=== PATIENT | male | born 1950 | race Caucasian/White ===

== ENCOUNTER 2017-08-06 11:58 | Observation (INO) | payer MEDICARE, OTHER ==
[2017-08-06] MEDS ORDERED: METOCLOPRAMIDE 5 MG/ML 2 ML VIAL IVP STA (13:38)
[2017-08-06] MEDS ORDERED: SODIUM CHLORIDE 0.9% 1,000 ML IV STA (13:38)
--- NOTE | 2017-08-06 13:41 | ED ---
General Adult HPI <Wan Reno - Last Filed: 08/06/17 15:27> - General Source: patient, family, RN notes reviewed Mode of arrival: ambulatory Limitations: no limitations, altered mental status <Brit Gonzalez - Last Filed: 08/06/17 15:31> - General Chief complaint: Upper Respiratory Infection Stated complaint: flu like symptoms, chest pain Time Seen by Provider: 08/06/17 13:31 - History of Present Illness Initial comments: 66-year-old male presents to the emergency department with a chief complaint of cough and some chest pain and nausea. He did have one episode of vomiting as well. They deny any fever or chills. He's been sick since Thursday. They state that he just does not seem to be getting better and she is continuing to have this discomfort so he thought they should be evaluated. He states the chest pain was across the chest. He states he's had hiccups on and off since Thursday as well. Patient denies any recent fever, chills, shortness of breath, back pain , abdominal pain, numbness or tingling, dysuria or hematuria, constipation or diarrhea, headaches or visual changes, or any other current symptoms. (Brit Gonzalez) - Related Data Home Medications Medication Instructions Recorded Confirmed Ascorbic Acid [Vitamin C] 500 mg PO DAILY 08/06/17 08/06/17 Citalopram Hydrobromide [CeleXA] 20 mg PO DAILY 08/06/17 08/06/17 Tamsulosin HCl [Flomax] 0.4 mg PO DAILY 08/06/17 08/06/17 Triamterene/Hydrochlorothiazid 1 tab PO DAILY 08/06/17 08/06/17 [Triamterene-Hctz 37.5-25 mg Tb] amLODIPine [Norvasc] 5 mg PO DAILY 08/06/17 08/06/17 Allergies Allergy/AdvReac Type Severity Reaction Status Date / Time No Known Allergies Allergy Verified 08/06/17 13:44 Review of Systems ROS Other: All systems not noted in ROS Statement are negative. <Wan Reno - Last Filed: 08/06/17 15:27> ROS Other: All systems not noted in ROS Statement are negative. <Brit Gonzalez - Last Filed: 08/06/17 15:31> ROS Statement: Those systems with pertinent positive or pertinent negative responses have been documented in the HPI. Past Medical History Past Medical History: Hypertension Additional Past Medical History / Comment(s): mentally handicapped obesity History of Any Multi-Drug Resistant Organisms: None Reported Past Surgical History: Adenoidectomy, Appendectomy, Cholecystectomy, Hernia Repair, Tonsillectomy Past Psychological History: Anxiety Smoking Status: Never smoker Past Alcohol Use History: None Reported Past Drug Use History: None Reported <Brit Gonzalez - Last Filed: 08/06/17 15:31> General Exam <Wan Reno - Last Filed: 08/06/17 15:27> Limitations: no limitations, altered mental status <Brit Gonzalez - Last Filed: 08/06/17 15:31> - General Exam Comments Initial Comments: General: The patient is awake and alert, in no distress, and does not appear acutely ill. Eye: Pupils are equal, round and reactive to light, extra-ocular movements are intact; there is normal conjunctiva bilaterally. No signs of icterus. Ears, nose, mouth and throat: There are moist mucous membranes and no oral lesions. Neck: The neck is supple, there is no tenderness . Cardiovascular: There is a regular rate and rhythm. No murmur, rub or gallop is appreciated. Respiratory: Lungs are clear to auscultation, respirations are non-labored, breath sounds are equal. No wheezes, stridor, rales, or rhonchi. Gastrointestinal: Soft, non-distended, non-tender abdomen without masses or organomegaly noted. There is no rebound or guarding present. No CVA tenderness. Bowel sounds are unremarkable. Back: There is no tenderness to palpation in the midline. There is no obvious deformity. No rashes noted. Musculoskeletal: Normal ROM, no tenderness, There is no pedal edema. There is no calf tenderness or swelling. Sensation intact. Pulses equal bilaterally 2+. Neurological: CN II-XII intact, There are no obvious motor or sensory deficits. Coordination appears grossly intact. Speech is normal. Skin: Skin is warm and dry and no rashes or lesions are noted. Psychiatric: Cooperative, appropriate mood & affect, normal judgment. (Brit Gonzalez) Course <Wan Reno - Last Filed: 08/06/17 15:27> <Brit Gonzalez - Last Filed: 08/06/17 15:31> Vital Signs 08/06/17 08/06/17 12:30 15:09 Temperature 98.1 F Pulse Rate 18 L 100 Respiratory 92 H 16 Rate Blood Pressure 121/58 110/56 O2 Sat by Pulse 96 98 Oximetry - Reevaluation(s) Reevaluation #1: 08/06/17 15:28 Patient reevaluated by myself, Dr. Reno. Patient has been complaining of some discomfort of the chest over the past couple of days. Patient has also had some vomiting and hiccups and cough. X-ray and chart review. Patient and family were updated. Case was discussed in detail with Dr. Finney, who will admit for Dr. Edmonds. (Wan Reno) Medical Decision Making - Lab Data Result diagrams: 08/06/17 13:57 08/06/17 13:57 <Wan Reno - Last Filed: 08/06/17 15:27> - Lab Data Result diagrams: 08/06/17 13:57 08/06/17 13:57 - Radiology Data Radiology results: report reviewed, image reviewed <Brit Gonzalez - Last Filed: 08/06/17 15:31> - Medical Decision Making 66-year-old male presents for hiccups And chest pain. At this time patient's lab work is been reviewed and troponin is stable. Due to the complaint of chest pain and the patient's mental handicap we will admit for cardiac rule out. The Lionel does agree to the admission. We will trend her troponins. Patient family on agreement this plan all questions have been answered. (Brit Gonzalez) - Lab Data Lab Results 08/06/17 08/06/17 08/06/17 Range/Units 13:57 13:57 13:57 WBC 16.2 H (3.8-10.6) k/uL RBC 4.48 (4.30-5.90) m/uL Hgb 14.3 (13.0-17.5) gm/dL Hct 43.2 (39.0-53.0) % MCV 96.4 (80.0-100.0) fL MCH 31.9 (25.0-35.0) pg MCHC 33.0 (31.0-37.0) g/dL RDW 13.6 (11.5-15.5) % Plt Count 270 (150-450) k/uL Neutrophils % 74 % Lymphocytes % 12 % Monocytes % 10 % Eosinophils % 1 % Basophils % 1 % Neutrophils # 12.0 H (1.3-7.7) k/uL Lymphocytes # 2.0 (1.0-4.8) k/uL Monocytes # 1.6 H (0-1.0) k/uL Eosinophils # 0.1 (0-0.7) k/uL Basophils # 0.1 (0-0.2) k/uL PT (9.0-12.0) sec INR (<1.2) APTT (22.0-30.0) sec Sodium 140 (137-145) mmol/L Potassium 3.9 (3.5-5.1) mmol/L Chloride 102 (98-107) mmol/L Carbon Dioxide 29 (22-30) mmol/L Anion Gap 9 mmol/L BUN 33 H (9-20) mg/dL Creatinine 1.18 (0.66-1.25) mg/dL Est GFR (CKD-EPI)AfAm 74 (>60 ml/min/1.73 sqM) Est GFR (CKD-EPI)NonAf 64 (>60 ml/min/1.73 sqM) Glucose 99 (74-99) mg/dL Calcium 8.7 (8.4-10.2) mg/dL Magnesium 2.1 (1.6-2.3) mg/dL Total Bilirubin 1.1 (0.2-1.3) mg/dL AST 32 (17-59) U/L ALT 54 (21-72) U/L Alkaline Phosphatase 79 (38-126) U/L Total Creatine Kinase 36 L (55-170) U/L CK-MB (CK-2) 1.0 (0.0-2.4) ng/mL CK-MB (CK-2) Rel Index 2.8 Troponin I <0.012 (0.000-0.034) ng/mL Total Protein 5.6 L (6.3-8.2) g/dL Albumin 3.2 L (3.5-5.0) g/dL Amylase <30 L (30-110) U/L Lipase 43 (23-300) U/L 08/06/17 Range/Units 13:57 WBC (3.8-10.6) k/uL RBC (4.30-5.90) m/uL Hgb (13.0-17.5) gm/dL Hct (39.0-53.0) % MCV (80.0-100.0) fL MCH (25.0-35.0) pg MCHC (31.0-37.0) g/dL RDW (11.5-15.5) % Plt Count (150-450) k/uL Neutrophils % % Lymphocytes % % Monocytes % % Eosinophils % % Basophils % % Neutrophils # (1.3-7.7) k/uL Lymphocytes # (1.0-4.8) k/uL Monocytes # (0-1.0) k/uL Eosinophils # (0-0.7) k/uL Basophils # (0-0.2) k/uL PT 9.7 (9.0-12.0) sec INR 1.0 (<1.2) APTT 21.7 L (22.0-30.0) sec Sodium (137-145) mmol/L Potassium (3.5-5.1) mmol/L Chloride (98-107) mmol/L Carbon Dioxide (22-30) mmol/L Anion Gap mmol/L BUN (9-20) mg/dL Creatinine (0.66-1.25) mg/dL Est GFR (CKD-EPI)AfAm (>60 ml/min/1.73 sqM) Est GFR (CKD-EPI)NonAf (>60 ml/min/1.73 sqM) Glucose (74-99) mg/dL Calcium (8.4-10.2) mg/dL Magnesium (1.6-2.3) mg/dL Total Bilirubin (0.2-1.3) mg/dL AST (17-59) U/L ALT (21-72) U/L Alkaline Phosphatase (38-126) U/L Total Creatine Kinase (55-170) U/L CK-MB (CK-2) (0.0-2.4) ng/mL CK-MB (CK-2) Rel Index Troponin I (0.000-0.034) ng/mL Total Protein (6.3-8.2) g/dL Albumin (3.5-5.0) g/dL Amylase (30-110) U/L Lipase (23-300) U/L Disposition <Wan Reno - Last Filed: 08/06/17 15:27> Decision Date: 08/06/17 Decision Time: 15:31 <Brit Gonzalez - Last Filed: 08/06/17 15:31> Clinical Impression: Chest pain, Hiccups, Cough Disposition: ADMITTED IP TO THIS [facility] Condition: Stable Referrals: Callie Edmonds MD [Primary Care Provider] - 1-2 days
[2017-08-06 14:15] LABS: Basophils # (A) 0.1 k/uL (0-0.2); Basophils % (A) 1 %; Eosinophils # (A) 0.1 k/uL (0-0.7); Eosinophils % (A) 1 %; HCT 43.2 % (39.0-53.0); HGB 14.3 gm/dL (13.0-17.5); Lymphocytes % (A) 12 %; MCH 31.9 pg (25.0-35.0); MCV 96.4 fL (80.0-100.0); Mean Platelet Volume 7.8; Monocytes # (A) 1.6 k/uL (0-1.0); Monocytes % (A) 10 %; Neutrophils % (A) 74 %; Platelet Count 270 k/uL (150-450); RBC 4.48 m/uL (4.30-5.90); RDW 13.6 % (11.5-15.5); WBC 16.2 k/uL (3.8-10.6)
[2017-08-06 14:24] LABS: Prothrombin Time 9.7 sec (9.0-12.0)
[2017-08-06 14:34] LABS: ALT 54 U/L (21-72); AST 32 U/L (17-59); Albumin 3.2 g/dL (3.5-5.0); Alkaline Phosphatase 79 U/L (38-126); Amylase <30 U/L (30-110); Anion Gap 9 mmol/L; Blood Urea Nitrogen 33 mg/dL (9-20); Calcium 8.7 mg/dL (8.4-10.2); Carbon Dioxide 29 mmol/L (22-30); Chloride 102 mmol/L (98-107); Glucose 99 mg/dL (74-99); Lipase 43 U/L (23-300); Magnesium 2.1 mg/dL (1.6-2.3); Partial Thromboplastin Time 21.7 sec (22.0-30.0); Potassium 3.9 mmol/L (3.5-5.1); Sodium 140 mmol/L (137-145); Total Bilirubin 1.1 mg/dL (0.2-1.3); Total Protein 5.6 g/dL (6.3-8.2)
[2017-08-06 14:46] LABS: Creatine Kinase 36 U/L (55-170)
--- NOTE | 2017-08-06 14:55 | XR ---
EXAMINATION TYPE: XR chest 2V DATE OF EXAM: 08/06/2017 COMPARISON: 04/18/2015 HISTORY: Chest pain TECHNIQUE: Frontal and lateral views of the chest are obtained. FINDINGS: There is no focal air space opacity, pleural effusion, or pneumothorax seen. The cardiac silhouette size is within normal limits. The osseous structures are intact. Incidental note is made of an azygos lobe and azygous fissure. Mild acromio clavicular arthropathy is noted. Minimal multile dany degenerative change of the thoracic spine is seen. IMPRESSION: No acute cardiopulmonary process.
[2017-08-06 15:00] LABS: Troponin I <0.012 ng/mL (0.000-0.034)
[2017-08-06] MEDS ORDERED: ASPIRIN 81 MG PO STA (15:31)
[2017-08-06] MEDS: SODIUM CHLORIDE 0.9% 1,000 ML IV SCH (16:52)
[2017-08-06] MEDS ORDERED: ACETAMINOPHEN TAB 325 MG TAB PO PRN (18:52)
[2017-08-06 20:07] LABS: Creatine Kinase 42 U/L (55-170)
[2017-08-06 20:17] LABS: Troponin I <0.012 ng/mL (0.000-0.034)
[2017-08-07 02:16] LABS: Cholesterol 117 mg/dL (<200); HDL Cholesterol 29 mg/dL (40-60); LDL Cholesterol,Calculated 67 mg/dL (0-99); Triglycerides 107 mg/dL (<150)
[2017-08-07 02:30] LABS: Creatine Kinase 46 U/L (55-170)
[2017-08-07 02:44] LABS: Creatine Kinase MB 1.1 ng/mL (0.0-2.4); Troponin I <0.012 ng/mL (0.000-0.034)
[2017-08-07 03:12] VITALS: RESP 18
[2017-08-07] MEDS: SODIUM CHLORIDE 0.9% 1,000 ML IV SCH (05:16)
[2017-08-07] MEDS ORDERED: METOCLOPRAMIDE 5 MG/ML 2 ML VIAL IVP STA (07:43)
[2017-08-07] MEDS ORDERED: TRIAMTERENE-HCTZ 37.5-25MG 1 EACH TAB PO SCH (09:00)
[2017-08-07] MEDS ORDERED: TAMSULOSIN 0.4 MG CAP.ER.24H PO SCH (09:00)
[2017-08-07] MEDS ORDERED: CITALOPRAM HYDROBROMIDE 20 MG TAB PO SCH (09:00)
[2017-08-07] MEDS ORDERED: ASPIRIN 81 MG PO SCH (09:00)
[2017-08-07] MEDS ORDERED: amLODIPine 5 MG TAB PO SCH (09:00)
[2017-08-07] MEDS ORDERED: ASPIRIN 325 MG TAB PO SCH (09:00)
[2017-08-07] MEDS ORDERED: METOPROLOL TARTRATE 25 MG TAB PO SCH (09:00)
[2017-08-07] MEDS ORDERED: ASCORBIC ACID 500 MG TAB PO SCH (09:00)
--- NOTE | 2017-08-07 11:18 | ECHOF ---
Referral Reason:chest pain MEASUREMENTS -------- HEIGHT: 180.3 cm WEIGHT: 143.3 kg BP: 131/70 IVSd: 0.8 cm (0.6 - 1.1) LVIDd: 4.8 cm (3.9 - 5.3) LVPWd: 0.9 cm (0.6 - 1.1) IVSs: 1.9 cm LVIDs: 1.6 cm LVPWs: 1.3 cm LAESV Index (A-L): 30.02 ml/m Ao Diam: 3.8 cm (2.0 - 3.7) AV Cusp: 2.2 cm (1.5 - 2.6) LA Diam: 4.2 cm (2.7 - 3.8) MV EXCURSION: 16.963 mm (> 18.000) MV EF SLOPE: 73 mm/s (70 - 150) EPSS: 0.7 cm MV E Sadiq: 1.32 m/s MV DecT: 203 ms MV A Sadiq: 0.76 m/s MV E/A Ratio: 1.74 RAP: 5.00 mmHg RVSP: 10.57 mmHg FINDINGS -------- Sinus rhythm. This was a technically difficult study with suboptimal views. The left ventricular size is normal. Left ventricular wall thickness is normal. Overall left vent ricular systolic function is normal with, an EF between 55 - 60 %. The right ventricle is normal in size and function. The left atrium is mildly dilated. The right atrium is normal in size. Lumason used The aortic valve is trileaflet, and appears structurally normal. No aortic stenosis or regurgitation. Mild mitral regurgitation is present. Trace tricuspid regurgitation present. The right ventricular systolic pressure, as measured by Dopp ler, is 10.57mmHg. Pulmonic valve appears structurally normal. The aortic root size is normal. The pericardium is normal. CONCLUSIONS -------- 1. Sinus rhythm. 2. This was a technically difficult study with suboptimal views. 3. The left ventricular size is normal. 4. Left ventricular wall thickness is normal. 5. Overall left ventricular systolic function is normal with, an EF between 55 - 60 %. 6. The right ventricle is normal in size and function. 7. The left atrium is mildly dilated. 8. The right atrium is normal in size. 9. Lumason used 10. The aortic valve is trileaflet, and appears structurally normal. No aortic stenosis or regurgitat ion. 11. Mild mitral regurgitation is present. 12. Trace tricuspid regurgitation present. 13. The right ventricular systolic pressure, as measured by Doppler, is 10.57mmHg. 14. Pulmonic valve appears structurally normal. 15. The aortic root size is normal. 16. The pericardium is normal. FLUE TILE PRESS OPERATOR: Ayala Sexton RDCS
[2017-08-07 11:55] VITALS: BP 139/58; PULSE 76; TEMP 97.7
--- NOTE | 2017-08-07 14:56 | P.HPIM ---
History of Present Illness 66-year-old male presents to the emergency department with a chief complaint of cough and some chest pain and nausea. He did have one episode of vomiting as well. They deny any fever or chills. He's been sick since Thursday. They state that he just does not seem to be getting better and she is continuing to have this discomfort so he thought they should be evaluated. He states the chest pain was across the chest. He states he's had hiccups on and off since Thursday as well. Patient chest pain is predominantly in the retrosternal area associated nausea and vomiting appears to be gastroenteritis. Patient was a valid by cardiology cleared for discharge. Patient also had flu recently. Patient is complaining of bronchitis symptoms with cough with greenish sputum production because of which patient was discharged with 5 days of dark segment patient does have leukocytosis secondary to bronchitis Review of Systems REVIEW OF SYSTEMS: CONSTITUTIONAL: No fever, no malaise, no fatigue. HEENT: No recent visual problems or hearing problems. Denied any sore throat. CARDIOVASCULAR: No orthopnea, PND, no palpitations, no syncope. PULMONARY: No shortness of breath, GASTROINTESTINAL: No diarrhea. NEUROLOGICAL: No headaches, no weakness, no numbness. HEMATOLOGICAL: Denies any bleeding or petechiae. GENITOURINARY: Denies any burning micturition, frequency, or urgency. MUSCULOSKELETAL/RHEUMATOLOGICAL: Denies any joint pain, swelling, or any muscle pain. ENDOCRINE: Denies any polyuria or polydipsia. The rest of the 14-point review of systems is negative. Past Medical History Past Medical History: Hypertension, Pneumonia Additional Past Medical History / Comment(s): kidney stones,gallstones. at had lack of oxygen,mentally handicapped.took classes at [employer] age 26 then went to [employer]. unable to read but able to spell name and unable to manage money. his mom and he lives with dad. his sister sherie and chelsy are his legal guardians. obesity History of Any Multi-Drug Resistant Organisms: None Reported Past Surgical History: Adenoidectomy, Appendectomy, Cholecystectomy, Hernia Repair, Tonsillectomy Additional Past Surgical History / Comment(s): kidney stone removed Past Anesthesia/Blood Transfusion Reactions: No Reported Reaction Smoking Status: Never smoker - Past Family History Father History Unknown: Yes Mother History Unknown: Yes Medications and Allergies Home Medications Medication Instructions Recorded Confirmed Type Ascorbic Acid [Vitamin C] 500 mg PO DAILY 08/06/17 08/06/17 History Citalopram Hydrobromide [CeleXA] 20 mg PO DAILY 08/06/17 08/06/17 History Tamsulosin HCl [Flomax] 0.4 mg PO DAILY 08/06/17 08/06/17 History Triamterene/Hydrochlorothiazid 1 tab PO DAILY 08/06/17 08/06/17 History [Triamterene-Hctz 37.5-25 mg Tb] amLODIPine [Norvasc] 5 mg PO DAILY 08/06/17 08/06/17 History Doxycycline Monohydrate [Monodox] 100 mg PO BID 5 Days #10 cap 08/07/17 Rx Omeprazole [PriLOSEC] 40 mg PO AC-ELGIN #14 capsule. 08/07/17 Rx Allergies Allergy/AdvReac Type Severity Reaction Status Date / Time No Known Allergies Allergy Verified 08/06/17 13:44 Physical Exam Vitals: Vital Signs Temp Pulse Pulse Resp BP BP BP 08/07/17 11:53 97.7 F 76 18 139/58 08/07/17 08:00 98.5 F 94 18 170/77 08/07/17 03:12 18 08/07/17 03:10 98.9 F 90 18 131/70 08/07/17 00:00 17 08/06/17 23:27 98.7 F 93 17 138/71 08/06/17 20:00 18 08/06/17 19:40 98.0 F 94 18 128/60 08/06/17 17:15 98.6 F 87 18 148/69 08/06/17 16:56 97.7 F 60 16 148/86 08/06/17 15:09 100 16 110/56 Pulse Ox 08/07/17 11:53 94 L 08/07/17 08:00 96 08/07/17 03:12 08/07/17 03:10 94 L 08/07/17 00:00 08/06/17 23:27 96 08/06/17 20:00 08/06/17 19:40 95 08/06/17 17:15 99 08/06/17 16:56 98 08/06/17 15:09 98 Intake and Output 08/06/17 08/07/17 08/07/17 22:59 06:59 14:59 Intake Total 1332 700 477 Balance 1332 700 477 Intake: IV 700 Sodium Chloride 0.9% 1, 700 000 ml @ 100 mls/hr IV . Q10H ROSETTA Rx#:[id number] Oral 133 477 Other: Voiding Method Toilet Toilet Toilet # Voids 5 Weight 143.335 kg PHYSICAL EXAMINATION: GENERAL: The patient is alert and oriented x3, not in any acute distress. Well developed, well nourished. Obese HEENT: Pupils are round and equally reacting to light. EOMI. No scleral icterus. No conjunctival pallor. Normocephalic, atraumatic. No pharyngeal erythema. No thyromegaly. CARDIOVASCULAR: S1 and S2 present. No murmurs, rubs, or gallops. PULMONARY: Chest is clear to auscultation, no wheezing or crackles. ABDOMEN: Soft, nontender, nondistended, normoactive bowel sounds. No palpable organomegaly. MUSCULOSKELETAL: No joint swelling or deformity. EXTREMITIES: No cyanosis, clubbing, or pedal edema. NEUROLOGICAL: Gross neurological examination did not reveal any focal deficits. SKIN: No rashes. Results CBC & Chem 7: 08/06/17 13:57 08/06/17 13:57 Labs: Abnormal Lab Results - Last 24 Hours (Table) 08/06/17 08/06/17 08/07/17 Range/Units 13:57 19:31 01:16 Total Creatine Kinase 36 L 42 L 46 L (55-170) U/L HDL Cholesterol (40-60) mg/dL 08/07/17 Range/Units 01:16 Total Creatine Kinase (55-170) U/L HDL Cholesterol 29 L (40-60) mg/dL Thrombosis Risk Factor Assmnt - Choose All That Apply Each Factor Represents 1 point: Obesity (BMI >25), Swollen legs (current) Other Risk Factors: Yes Each Risk Factor Represents 2 Points: Age 61-74 years Other congenital or acquired thrombophilia - If yes, enter type in comment: No Thrombosis Risk Factor Assessment Total Risk Factor Score: 4 Thrombosis Risk Factor Assessment Level: Moderate Risk Assessment and Plan Plan: --Chest pain: Most probably related to gastritis or gastroenteritis patient will be given prescription for 14 days of Prilosec. Check ruled out acute coronary syndromes. - bronchitis: Patient was discharged on doxycycline, patient had recent influenzal infection. -Hypertension. -Leukocytosis secondary to bronchitis.
--- NOTE | 2017-08-07 14:56 | P.DS ---
Providers Date of admission: 08/06/17 15:29 Attending physician: Cheri Finney Consults: 08/06/17 16:38 Consult Physician Stat Consulting Provider: Dereck Beltre Consult Reason/Comments: chest pain Do you want consulting provider notified?: Yes Primary care physician: Callie Edmonds [facility] Course: Please refer to my HPI Patient Condition at Discharge: Stable Plan - Discharge Summary Discharge Rx Participant: No New Discharge Prescriptions: New Doxycycline Monohydrate [Monodox] 100 mg PO BID 5 Days #10 cap Omeprazole [PriLOSEC] 40 mg PO AC-BRKFST #14 capsule. No Action Triamterene/Hydrochlorothiazid [Triamterene-Hctz 37.5-25 mg Tb] 1 tab PO DAILY Citalopram Hydrobromide [CeleXA] 20 mg PO DAILY amLODIPine [Norvasc] 5 mg PO DAILY Tamsulosin HCl [Flomax] 0.4 mg PO DAILY Ascorbic Acid [Vitamin C] 500 mg PO DAILY Discharge Medication List Ascorbic Acid [Vitamin C] 500 mg PO DAILY 08/06/17 [History] Citalopram Hydrobromide [CeleXA] 20 mg PO DAILY 08/06/17 [History] Tamsulosin HCl [Flomax] 0.4 mg PO DAILY 08/06/17 [History] Triamterene/Hydrochlorothiazid [Triamterene-Hctz 37.5-25 mg Tb] 1 tab PO DAILY 08/06/17 [History] amLODIPine [Norvasc] 5 mg PO DAILY 08/06/17 [History] Doxycycline Monohydrate [Monodox] 100 mg PO BID 5 Days #10 cap 08/07/17 [Rx] Omeprazole [PriLOSEC] 40 mg PO AC-BRKFST #14 capsule. 08/07/17 [Rx] Follow up Appointment(s)/Referral(s): Gurwinder Thornton MD [STAFF PHYSICIAN] - 2 Weeks Callie Edmonds MD [Primary Care Provider] - 1-2 days Discharge Disposition: HOME SELF-CARE
--- NOTE | 2017-08-07 15:11 | CONS ---
CONSULTATION Nate Landers is a 66-year-old gentleman with a history of obesity and hypertension, admitted to the hospital with episode of cough and hiccups. With this hiccups, he is experiencing some chest pain and I was asked to see him in this regard. He is resting comfortably without symptoms at the time of my evaluation. He came in mostly with some nausea and also felt sick to his stomach, had 1 episode of emesis. He has no further emesis. His appetite is good. He wishes to eat. He felt uncomfortable in the chest because of recurrent episodes of hiccups that he has had. While I was with him, I had him drink some water and then the hiccups disappeared. He feels better. He denies chest pain. He has hypertension under good control and has had previous stress tests, details are not available, but these were normal per patient. PAST MEDICAL HISTORY: 1. Hypertension. 2. Obesity. 3. History of appendectomy and cholecystectomy and hiatal hernia repair in the past. ALLERGIES: None. MEDICATIONS: He takes Dyazide 1 tablet daily and amlodipine 5 mg daily. Patient is not a smoker. Does not consume alcohol. PHYSICAL EXAMINATION: Blood pressure is 130/70, pulse rate is 90 per minute, regular. HEENT: Unremarkable. Fundus was not examined by me. Neck is supple. There is no JVD. I do not hear a carotid bruit. Heart exam reveals S1, S2, but distant heart sounds. No significant murmurs. Lungs reveal diminished air entry. Abdomen is soft, nontender. Lower extremities reveal diminished pulses. Central nervous system is grossly within normal limits without focal deficits. IMPRESSION: 1. Atypical chest pain with hiccups. 2. Hypertension. 3. Obesity. RECOMMENDATION: I am recommending that we should decrease the aspirin to 81 mg daily. Echocardiogram revealed normal systolic function. No other significant abnormalities were detected. Patient can be discharged with the understanding that a cardiac workup can be performed as an outpatient. Discussed my thoughts in detail with the patient. Thank you very much for the consult. MMODL / IJN: [id number] /
== END 2017-08-07 13:50 | disposition home or self-care (01) ==
LOC: EC 11:58 → 3OBS 15:29
PROVIDERS: ADMIT Internal Medicine; ATTEND Internal Medicine
DX: R07.89 Other chest pain (principal); J40 Bronchitis, not specified as acute or chronic; I10 Essential (primary) hypertension; E66.9 Obesity, unspecified; Z68.41 Body mass index [BMI] 40.0-44.9, adult; R06.6 Hiccough; R11.2 Nausea with vomiting, unspecified; F41.9 Anxiety disorder, unspecified; M79.89 Other specified soft tissue disorders; Z90.49 Acquired absence of other specified parts of digestive tract; Z79.899 Other long term (current) drug therapy; Z87.01 Personal history of pneumonia (recurrent); Z87.442 Personal history of urinary calculi; Z55.9 Problems related to education and literacy, unspecified
CPT/HCPCS: 96374 ×2; 96361 ×2; 99284 ×2; 96376; 36415; 93005; 93306; 80061; 80053; 82150; 82550 ×2; 82553 ×2; 83690; 83735; 84484 ×2; 85025; 85610; 85730; 71046; G0378 ×2; J2765 ×2; Q9950

== ENCOUNTER 2019-07-24 16:05 | Inpatient (IN) | payer MEDICARE, OTHER ==
--- NOTE | 2019-07-24 17:04 | ED ---
General Adult HPI - General Chief complaint: Recheck/Abnormal Lab/Rx Stated complaint: High Blood Pressure/Side Pain Time Seen by Provider: 07/24/19 16:15 Source: patient, family, RN notes reviewed, old records reviewed Mode of arrival: ambulatory Limitations: altered mental status - History of Present Illness Initial comments: 68-year-old male presenting for evaluation of increased urination, flank pain. Symptoms have been present for the past several days. He's had increased urination, increased urinary frequency and urgency. Patient is mentally disabled and unable to give a complete history however his sisters are at bedside and are able to contribute to the history. He was seen by his customer support analyst approximately 2 weeks ago, had a short course of increased Lasix secondary to bilateral lower extremity edema. This was adjusted back to his baseline Lasix dose for proximally one week ago. Over the past several days he's had increased urination, thirst and left flank pain. No fever or chills. No vomiting. No chest pain or dyspnea. No reported abdominal pain. No diarrhea. - Related Data Home Medications Medication Instructions Recorded Confirmed Citalopram Hydrobromide [CeleXA] 20 mg PO DAILY 08/06/17 07/24/19 Tamsulosin HCl [Flomax] 0.4 mg PO DAILY 08/06/17 07/24/19 Enalapril [Vasotec] 20 mg PO DAILY 07/24/19 07/24/19 Furosemide [Lasix] 40 mg PO DAILY 07/24/19 07/24/19 Hydrochlorothiazide [Hydrodiuril] 25 mg PO DAILY 07/24/19 07/24/19 Levothyroxine Sodium [Euthyrox] 75 mcg PO DAILY 07/24/19 07/24/19 Levothyroxine Sodium [Synthroid] 100 mcg PO DAILY 07/24/19 07/24/19 Losartan Potassium 100 mg PO DAILY 07/24/19 07/24/19 Metoprolol Succinate [Toprol XL] 25 mg PO DAILY 07/24/19 07/24/19 Omeprazole 20 mg PO BID PRN 07/24/19 07/24/19 Potassium Chloride ER [K-Dur 20] 20 meq PO DAILY 07/24/19 07/24/19 Allergies Allergy/AdvReac Type Severity Reaction Status Date / Time No Known Allergies Allergy Verified 07/24/19 17:16 Review of Systems ROS Statement: Those systems with pertinent positive or pertinent negative responses have been documented in the HPI. ROS Other: All systems not noted in ROS Statement are negative. Past Medical History Past Medical History: Hypertension, Pneumonia Additional Past Medical History / Comment(s): kidney stones,gallstones. at had lack of oxygen,mentally handicapped.took classes at [employer] age 26 then went to [employer] [place]. unable to read but able to spell name and unable to manage money. his mom and he lives with d ad. his sister sherie and chelsy are his legal guardians. obesity History of Any Multi-Drug Resistant Organisms: None Reported Past Surgical History: Adenoidectomy, Appendectomy, Cholecystectomy, Hernia Repair, Tonsillectomy Additional Past Surgical History / Comment(s): kidney stone removed Past Anesthesia/Blood Transfusion Reactions: No Reported Reaction Past Psychological History: No Psychological Hx Reported Smoking Status: Never smoker Past Alcohol Use History: None Reported Past Drug Use History: None Reported - Past Family History Father History Unknown: Yes Mother History Unknown: Yes General Exam Limitations: altered mental status General appearance: alert, in no apparent distress Head exam: Present: atraumatic, normocephalic Eye exam: Present: normal appearance, PERRL ENT exam: Present: mucous membranes dry Neck exam: Present: normal inspection. Absent: tenderness, meningismus Respiratory exam: Present: normal lung sounds bilaterally. Absent: respiratory distress, wheezes, rales Cardiovascular Exam: Present: regular rate, normal rhythm GI/Abdominal exam: Present: soft, distended. Absent: tenderness, guarding, rebound Extremities exam: Present: pedal edema, other (Chronic venous stasis, bilateral erythema) Back exam: Present: normal inspection. Absent: full ROM, tenderness, paraspinal tenderness, vertebral tenderness Neurological exam: Present: alert. Absent: motor sensory deficit Skin exam: Present: warm, dry Course Vital Signs 07/24/19 07/24/19 16:10 18:16 Temperature 97.8 F 98.2 F Pulse Rate 85 84 Respiratory 20 18 Rate Blood Pressure 196/80 194/77 O2 Sat by Pulse 95 96 Oximetry EKG Findings - EKG Comments: EKG Findings:: EKG: Normal sinus rhythm, sinus arrhythmia, left atrial enlargement slightly widened QRS at 120 ms, UT interval 168, ventricular rate of 80, QTC 445, no ST segment elevation. Medical Decision Making - Medical Decision Making 68-year-old male with decreased urine output, thirst. Patient is a poor historian, also complaining of some flank pain. He is unable to urinate while the emergency department. Laboratory testing does reveal significant leukocytosis at 24.6, stable hemoglobin, mild increase in symptoms and then at 2.02. He has a mild lactic acid of 2.3. X-ray concerning for ileus, given this with the flank pain, CT is performed. Distended bladder, bilateral hydronephrosis, there is an incarcerated umbilical hernia. Patient has been having normal bowel movements, no vomiting, and low suspicion for obstructive process at this time. I suspect his symptoms are all related to urinary retention and bilateral hydronephrosis. He is initiated on IV antibiotics, Baker catheter is placed. He will have continuous IV fluids. He's admitted for acute renal failure, pyelonephritis, urinary retention. He is discussed with Dr. Hill who will admit. - Lab Data Result diagrams: 07/24/19 16:55 07/24/19 16:55 Lab Results 07/24/19 07/24/19 07/24/19 Range/Units 16:55 16:55 16:55 WBC 24.6 H (3.8-10.6) k/uL RBC 4.74 (4.30-5.90) m/uL Hgb 15.2 (13.0-17.5) gm/dL Hct 46.3 (39.0-53.0) % MCV 97.7 (80.0-100.0) fL MCH 32.1 (25.0-35.0) pg MCHC 32.8 (31.0-37.0) g/dL RDW 13.4 (11.5-15.5) % Plt Count 265 (150-450) k/uL Neutrophils % 88 % Lymphocytes % 4 % Monocytes % 6 % Eosinophils % 0 % Basophils % 0 % Neutrophils # 21.7 H (1.3-7.7) k/uL Lymphocytes # 1.1 (1.0-4.8) k/uL Monocytes # 1.5 H (0-1.0) k/uL Eosinophils # 0.1 (0-0.7) k/uL Basophils # 0.0 (0-0.2) k/uL PT 9.7 (9.0-12.0) sec INR 0.9 (<1.2) APTT 22.3 (22.0-30.0) sec Sodium 144 (137-145) mmol/L Potassium 4.0 (3.5-5.1) mmol/L Chloride 107 (98-107) mmol/L Carbon Dioxide 28 (22-30) mmol/L Anion Gap 9 mmol/L BUN 29 H (9-20) mg/dL Creatinine 2.02 H (0.66-1.25) mg/dL Est GFR (CKD-EPI)AfAm 38 (>60 ml/min/1.73 sqM) Est GFR (CKD-EPI)NonAf 33 (>60 ml/min/1.73 sqM) Glucose 178 H (74-99) mg/dL Plasma Lactic Acid Edgar (0.7-2.0) mmol/L Calcium 10.0 (8.4-10.2) mg/dL Magnesium 1.8 (1.6-2.3) mg/dL Total Bilirubin 1.9 H (0.2-1.3) mg/dL AST 39 (17-59) U/L ALT 42 (4-49) U/L Alkaline Phosphatase 123 (38-126) U/L NT-Pro-B Natriuret Pep pg/mL Total Protein 7.6 (6.3-8.2) g/dL Albumin 4.6 (3.5-5.0) g/dL Acetone, Qual Negative (Negative) 07/24/19 07/24/19 Range/Units 16:55 16:55 WBC (3.8-10.6) k/uL RBC (4.30-5.90) m/uL Hgb (13.0-17.5) gm/dL Hct (39.0-53.0) % MCV (80.0-100.0) fL MCH (25.0-35.0) pg MCHC (31.0-37.0) g/dL RDW (11.5-15.5) % Plt Count (150-450) k/uL Neutrophils % % Lymphocytes % % Monocytes % % Eosinophils % % Basophils % % Neutrophils # (1.3-7.7) k/uL Lymphocytes # (1.0-4.8) k/uL Monocytes # (0-1.0) k/uL Eosinophils # (0-0.7) k/uL Basophils # (0-0.2) k/uL PT (9.0-12.0) sec INR (<1.2) APTT (22.0-30.0) sec Sodium (137-145) mmol/L Potassium (3.5-5.1) mmol/L Chloride (98-107) mmol/L Carbon Dioxide (22-30) mmol/L Anion Gap mmol/L BUN (9-20) mg/dL Creatinine (0.66-1.25) mg/dL Est GFR (CKD-EPI)AfAm (>60 ml/min/1.73 sqM) Est GFR (CKD-EPI)NonAf (>60 ml/min/1.73 sqM) Glucose (74-99) mg/dL Plasma Lactic Acid Edgar 2.3 H* (0.7-2.0) mmol/L Calcium (8.4-10.2) mg/dL Magnesium (1.6-2.3) mg/dL Total Bilirubin (0.2-1.3) mg/dL AST (17-59) U/L ALT (4-49) U/L Alkaline Phosphatase (38-126) U/L NT-Pro-B Natriuret Pep 547 pg/mL Total Protein (6.3-8.2) g/dL Albumin (3.5-5.0) g/dL Acetone, Qual (Negative) Disposition Clinical Impression: SOPHIA (acute kidney injury), Pyelonephritis Disposition: ADMITTED IP TO THIS [facility] Condition: Stable Is patient prescribed a controlled substance at d/c from ED?: No Referrals: Callie Edmonds MD [Primary Care Provider] - 1-2 days Decision to Admit Reason: Admit from EC Decision Date: 07/24/19 Decision Time: 19:35
[2019-07-24 17:08] LABS: Basophils % (A) 0 %; Eosinophils # (A) 0.1 k/uL (0-0.7); Eosinophils % (A) 0 %; HCT 46.3 % (39.0-53.0); HGB 15.2 gm/dL (13.0-17.5); Lymphocytes # (A) 1.1 k/uL (1.0-4.8); Lymphocytes % (A) 4 %; MCH 32.1 pg (25.0-35.0); MCHC 32.8 g/dL (31.0-37.0); MCV 97.7 fL (80.0-100.0); Mean Platelet Volume 8.4; Monocytes # (A) 1.5 k/uL (0-1.0); Monocytes % (A) 6 %; Neutrophils # (A) 21.7 k/uL (1.3-7.7); Neutrophils % (A) 88 %; Platelet Count 265 k/uL (150-450); RBC 4.74 m/uL (4.30-5.90); RDW 13.4 % (11.5-15.5); WBC 24.6 k/uL (3.8-10.6)
[2019-07-24 17:14] LABS: ALT 42 U/L (4-49); AST 39 U/L (17-59); African American GFR (CKD) 38 (>60 ml/min/1.73 sqM); Albumin 4.6 g/dL (3.5-5.0); Alkaline Phosphatase 123 U/L (38-126); Anion Gap 9 mmol/L; Blood Urea Nitrogen 29 mg/dL (9-20); Carbon Dioxide 28 mmol/L (22-30); Chloride 107 mmol/L (98-107); Glucose 178 mg/dL (74-99); Magnesium 1.8 mg/dL (1.6-2.3); Non-African American GFR(CKD) 33 (>60 ml/min/1.73 sqM); Sodium 144 mmol/L (137-145); Total Bilirubin 1.9 mg/dL (0.2-1.3); Total Protein 7.6 g/dL (6.3-8.2)
[2019-07-24 17:19] LABS: INR 0.9 (<1.2); Prothrombin Time 9.7 sec (9.0-12.0)
[2019-07-24 17:20] LABS: Partial Thromboplastin Time 22.3 sec (22.0-30.0)
[2019-07-24] MEDS ORDERED: SODIUM CHLORIDE 0.9% 500 ML 500 ML IV ONE ×2 (17:50→18:25)
[2019-07-24] MEDS ORDERED: cefTRIAXone IN SWFI 1,000 MG/10 ML SYRINGE IVP STA (18:25)
--- NOTE | 2019-07-24 18:29 | XR ---
EXAMINATION TYPE: XR chest 2V DATE OF EXAM: 07/24/2019 COMPARISON: 08/06/2017 HISTORY: Chest pain TECHNIQUE: 2 views. FINDINGS: Heart is normal. Lungs are clear of consolidation. There are no hilar masses. Thoracic aorta is shows mild atheromatous change. There is mild coarsening of the lung markings. IMPRESSION: Inspiration is decreased compared to last exam. There is minimal subsegmental atelectasis at the lung bases. No heart failure. Normal heart.
--- NOTE | 2019-07-24 18:30 | XR ---
EXAMINATION TYPE: XR KUB DATE OF EXAM: 07/24/2019 COMPARISON: NONE HISTORY: Flank pain TECHNIQUE: 2 views FINDINGS: 2 views upright show some dilated gas-filled loops of small bowel in the right abdomen. The re is no evidence of free air. There are no pathologic calcifications over the kidneys. There are cli ps from cholecystectomy. IMPRESSION: Distended gas-filled small bowel in the right upper quadrant could relate to ileus or par tial mechanical obstruction. No free air.
--- NOTE | 2019-07-24 19:07 | CT ---
EXAMINATION TYPE: CT abdomen pelvis wo con DATE OF EXAM: 07/24/2019 COMPARISON: None HISTORY: Abdominal pain Flank pain CT DLP: 1990.4 mGycm Automated exposure control for dose reduction was used. Multiple axial sections were obtained from the diaphragm to the floor the pelvis without contrast. There is mild subsegmental atelectasis at the lung bases. Heart appears enlarged. Liver shows no focal defect. Exam is limited by patient's size. Spleen is intact. There is no evidenc e of pancreatic mass. There are clips from cholecystectomy. Stomach appears intact. The bile ducts ar e not dilated. There is no adrenal mass. Kidneys have normal size and contour. There is mild fat stranding around th e left kidney. There is fat stranding extending along the left psoas muscle. I see no definite ureter al calculus. There is mild fullness of the left and right renal pelvis. There is no retroperitoneal a denopathy. Bladder distends smoothly. Prostate is enlarged and measures 8.5 cm. There is no inguinal hernia. There is mild fat stranding extending into the right scrotum. I see no evidence of a bowel obstruction. Small bowel is not dilated. There is incarcerated umbilical hernia containing small bowel. There is gas filled distended small bowel in the right mid abdomen th at measures up to 2.5 cm. There is no evidence of free air. There is no ascites. There is no mesenteric edema. The appendix is medial and posterior and appears normal. Lumbar vertebra have normal alignment. There is no compression fracture. The bony pelvis appears inta ct. IMPRESSION: There is mild bilateral hydronephrosis. There is fat stranding and edema along the left psoas muscle and around the proximal left ureter. No definite ureteral stone seen. This appearance could relate to obstructing nonopaque stone or recently passed stone. Enlarged prostate with mildly enlarged urinary bladder measuring 15 cm in length that is suggestive o f some chronic bladder outlet obstruction. Severe acute pyelonephritis also possible. Incarcerated umbilical hernia containing small bowel. There appears to be some distended gas-filled b owel proximal to the hernia and a mild partial mechanical small bowel obstruction is suspected. Herni a measures 3.5 x 2.5 cm.
[2019-07-24] MEDS ORDERED: hydrALAZINE HCL 20 MG/ML 1 ML VIAL IVP STA (19:29)
[2019-07-24] MEDS ORDERED: ONDANSETRON 4 MG/2 ML VIAL IVP PRN (19:30)
[2019-07-24] MEDS ORDERED: NALOXONE 0.4 MG/ML 1 ML VIAL IV PRN (19:30)
[2019-07-24] MEDS ORDERED: ACETAMINOPHEN TAB 325 MG TAB PO PRN (19:30)
[2019-07-24] MEDS: SODIUM CHLORIDE 0.9% 1,000 ML IV SCH (20:13)
[2019-07-24 20:18] LABS: Appearance,Urine Clear (Clear); Bilirubin,Urine Negative (Negative); Blood,Urine Trace (Negative); Color,Urine Yellow; Glucose,Urine (UA) Negative (Negative); Ketones,Urine Negative (Negative); Leukocyte Esterase,Urine Small (Negative); Mucus,Urine Rare /hpf; Nitrite,Urine Negative (Negative); Protein,Urine Trace (Negative); RBC,Urine 6 /hpf (0-5); Specific Gravity,Urine 1.013 (1.001-1.035); Urobilinogen,Urine <2.0 mg/dL (<2.0); WBC,Urine 8 /hpf (0-5)
[2019-07-24] MEDS ORDERED: NON FORMULARY DRUG (Omeprazole [Omeprazole] 20 MG) PO PRN (21:19)
[2019-07-24] MEDS ORDERED: HYDROmorphone 0.5 MG/0.5 ML SYRINGE IVP PRN (21:21)
[2019-07-24] MEDS ORDERED: ALPRAZolam 0.25 MG TAB PO PRN (21:21)
[2019-07-24] MEDS ORDERED: HYDROcodone/APAP 5-325MG 1 EACH TAB PO PRN (21:21)
[2019-07-24] MEDS ORDERED: IPRATROPIUM-ALBUTEROL 3 ML NEB INHALATION PRN (21:23)
[2019-07-24] MEDS: TAMSULOSIN 0.4 MG CAP.ER.24H PO SCH (22:45)
--- NOTE | 2019-07-24 23:05 | HP ---
HISTORY AND PHYSICAL DATE OF SERVICE: 07/24/2019 CHIEF COMPLAINTS: Abdominal discomfort and as well as abnormal labs. HISTORY OF PRESENT ILLNESS: This 68-year-old gentleman with a past medical history of multiple medical problems including hypertension, history of pneumonia, kidney stones, appendectomy, history of cholecystectomy, also had mental disability from childhood. The patient apparently living with the patient's father. The patient apparently gained weight recently and was evaluated by Dr. Thornton in the outpatient setting and was given Lasix, which is being adjusted in the outpatient setting. Currently the patient is complaining of some difficulty in urination with left flank pain. The patient has seen urology also previously. The patient also apparently had increased urinary frequency and urgency. Because of multiple complaints, the patient came to [facility] and was admitted for further evaluation and evaluation and treatment. Lasix dose is being adjusted as mentioned earlier. In the ER, evaluation showed evidence of increased WBC and creatinine was found to be 2.02. Plasma lactic acid 2.3. Evidence of UTI was suspected and as well as early sepsis. The patient also had abdominal pelvis CAT scan which showed multiple findings of mild bilateral hydronephrosis as well stranding edema with the left psoas muscle and as well as enlarged prostate with mildly enlarged urinary bladder incarcerated umbilical hernia containing small bowel also. The patient is being closely monitored. There is no history of fever, rigors. No history of headache, loss of consciousness, seizures. The patient followed by Dr. Edmonds in the outpatient setting. PAST MEDICAL HISTORY: Past medical history of hypertension, history of pneumonia, kidney stones, appendectomy, history of cholecystectomy. MEDICATIONS: 1. Omeprazole 20 mg b.i.d. p.r.n. 2. Toprol-XL 25 mg p.o. daily. 4. Losartan 100 mg p.o. daily. 5. Synthroid 100 mcg p.o. daily. 6. Lasix 40 mg p.o. daily. 7. HydroDIURIL 25 mg daily. 8. K-Dur 20 mEq p.o. daily. 9. Vasotec 20 mg p.o. daily. 10.Flomax 0.4 daily. 11.Celexa 20 mg daily. ALLERGIES: None. FAMILY HISTORY: No history of heart disease or strokes in the family. SOCIAL HISTORY: Previous history of smoking. No history of alcohol intake. REVIEW OF SYSTEMS: ENT: No diminished vision. No diminished hearing. CARDIOVASCULAR system is as mentioned earlier. RESPIRATORY: As mentioned earlier. GI: As mentioned earlier. as mentioned earlier. NERVOUS SYSTEM: No numbness, weakness. ALLERGY/IMMUNOLOGY: No asthma or hayfever. MUSCULOSKELETAL as mentioned. HEMATOLOGY/ONCOLOGY: No history of anemia. ENDOCRINE: No history of diabetes or hypothyroid. CONSTITUTIONAL: As mentioned earlier. Dermatology: Negative. Rheumatology: Negative. Psychiatry: As mentioned earlier. PHYSICAL EXAMINATION: Alert and oriented x2. Pulse 88. Blood pressure 140/69. Respirations 18. Temperature 98 degrees, pulse ox 97 percent on room air. HEENT: Conjunctivae normal. Oral mucosa moist. NECK is no jugular venous distention. Cardiovascular system: S1, S2 muffled. No S3, no S4. RESPIRATORY: Breath sounds diminished in the bases. No rhonchi. No crackles. ABDOMEN: Soft, obese. Mild diffuse distention present. LEGS bilateral leg edema. Nervous system: Higher functions as mentioned earlier. Moves all four limbs. No focal motor deficits. LYMPHATICS: No lymph nodes palpable in the neck, axillae or groin. SKIN: No ulcer, no rashes and no bleeding. JOINTS no active deforming arthropathy. LABS: WBC 24.6, sodium 140, potassium 4 and creatinine is 2.02 and plasma lactic acid 2.3. ASSESSMENT: 1. Left flank pain with urinary difficulties, possibly acute pyelonephritis. 2. Acute renal failure possibly prerenal acute tubular necrosis. 3. Possible sepsis present on admission secondary to urinary tract infection and pyelonephritis with elevated lactic acid 2.3. 4. Elevated total bilirubin. 5. Increased WBC. 6. History of hypertension. 7. History of pneumonia. 8. Possible benign prostatic hypertrophy, enlarged prostate in the CT scan. 9. Incarcerated umbilical hernia containing small bowel in the CT scan. 10.History of adenoidectomy. 11.History of appendectomy. 12.History of nephrolithiasis. 13.History of cholelithiasis. 14.History of cholecystectomy. 15.Obesity with body mass index 49.1. 16.FULL CODE. RECOMMENDATIONS AND DISCUSSION: This 68-year-old gentleman with multiple complex medical issues, we will monitor the patient closely. Continue the current medication, management and symptomatic treatment. We will initiate broad-spectrum IV antibiotics. Obtain cultures. Otherwise, cautious IV fluids. I would recommend IV antibiotics and DVT prophylaxis. I would also consult Urology and surgery for the above-mentioned issues including urinary obstruction and as well as possible umbilical hernia which is in the CT scan. The overall prognosis guarded because of multiple complex medical issues. Home medications will be resumed. I would discuss with 2 sisters at the bedside. Guarded prognosis. Further recommendations to follow. A copy of this dictation being forwarded to Dr. Edmonds who is the primary physician. MMODL / IJN: [id number] / TESSA
[2019-07-25] MEDS: SODIUM CHLORIDE 0.9% 1,000 ML IV SCH ×3 (04:52→23:40)
[2019-07-25] MEDS: LEVOTHYROXINE 75 MCG TAB PO SCH (05:33)
[2019-07-25] MEDS: LEVOTHYROXINE 100 MCG TAB PO SCH (05:33)
[2019-07-25 06:30] LABS: Basophils % (A) 0 %; Eosinophils # (A) 0.1 k/uL (0-0.7); Eosinophils % (A) 1 %; HCT 40.6 % (39.0-53.0); HGB 13.2 gm/dL (13.0-17.5); Lymphocytes # (A) 1.9 k/uL (1.0-4.8); Lymphocytes % (A) 9 %; MCHC 32.6 g/dL (31.0-37.0); MCV 98.4 fL (80.0-100.0); Mean Platelet Volume 8.5; Monocytes # (A) 1.6 k/uL (0-1.0); Monocytes % (A) 8 %; Neutrophils # (A) 16.8 k/uL (1.3-7.7); Neutrophils % (A) 81 %; Platelet Count 229 k/uL (150-450); RBC 4.13 m/uL (4.30-5.90); RDW 13.5 % (11.5-15.5); WBC 20.8 k/uL (3.8-10.6)
[2019-07-25 06:36] LABS: Potassium 3.6 mmol/L (3.5-5.1)
[2019-07-25] MEDS: IPRATROPIUM-ALBUTEROL 3 ML NEB INHALATION SCH ×3 (08:09→19:16)
[2019-07-25] MEDS: METOPROLOL SUCCINATE (ER) 25 MG TAB.ER.24H PO SCH (09:34)
[2019-07-25] MEDS: PANTOPRAZOLE 40 MG TABLET PO SCH (09:34)
[2019-07-25] MEDS: CITALOPRAM HYDROBROMIDE 20 MG TAB PO SCH (09:34)
[2019-07-25] MEDS: TAMSULOSIN 0.4 MG CAP.ER.24H PO SCH (09:34)
[2019-07-25] MEDS: HEPARIN SODIUM,PORCINE 5,000 UNIT/ML 1 ML VIAL SQ SCH ×2 (09:34→20:21)
--- NOTE | 2019-07-25 14:13 | P.GSCN ---
History of Present Illness Consult date: 07/25/19 History of present illness: 68-year-old male presents to the emergency department with complaints of right- sided flank pain and inability to urinate. Due to mental delay, the patient does have 2 sisters that do care for him. 1 of his sisters was at bedside during my exam. Since his arrival and admission to the hospital, the patient has had a Baker catheter placed with urine output. He states that since the Baker catheter has been placed, his pain has resolved. On work-up, the patient did have a CT of the abdomen and pelvis. This did show a hernia at the umbi lical site with possible bowel containment. He denies having any knowledge of this hernia previously. He denies any pain around the umbilicus. He denies any nausea or vomiting. His last bowel movement was yesterday and he is not showing any obstructive symptoms at this time. He denies any fevers, chills, chest pain or shortness of breath. Review of Systems All systems: negative Past Medical History Past Medical History: Hypertension, Pneumonia Additional Past Medical History / Comment(s): kidney stones,gallstones. at had lack of oxygen,mentally handicapped.took classes at [employer] age 26 then went to [employer]. unable to read but able to spell name and unable to manage money. his mom and he lives with dad. his sister sherie and chelsy are his legal guardians. obesity History of Any Multi-Drug Resistant Organisms: None Reported Past Surgical History: Adenoidectomy, Appendectomy, Cholecystectomy, Hernia Repair, Tonsillectomy Additional Past Surgical History / Comment(s): kidney stone removed Past Anesthesia/Blood Transfusion Reactions: No Reported Reaction Smoking Status: Never smoker - Past Family History Father History Unknown: Yes Mother History Unknown: Yes Medications and Allergies Home Medications Medication Instructions Recorded Confirmed Type Tamsulosin HCl [Flomax] 0.4 mg PO DAILY 08/06/17 07/24/19 History Enalapril [Vasotec] 20 mg PO DAILY 07/24/19 07/24/19 History Furosemide [Lasix] 40 mg PO DAILY 07/24/19 07/24/19 History Hydrochlorothiazide [Hydrodiuril] 25 mg PO DAILY 07/24/19 07/24/19 History Levothyroxine Sodium [Euthyrox] 75 mcg PO DAILY 07/24/19 07/24/19 History Levothyroxine Sodium [Synthroid] 100 mcg PO DAILY 07/24/19 07/24/19 History Metoprolol Succinate [Toprol XL] 25 mg PO DAILY 07/24/19 07/24/19 History Potassium Chloride ER [K-Dur 20] 20 meq PO DAILY 07/24/19 07/24/19 History RX: Losartan Potassium 100 mg PO DAILY 07/24/19 07/24/19 History RX: Omeprazole 20 mg PO BID PRN 07/24/19 07/24/19 History Citalopram Hydrobromide [CeleXA] 40 mg PO DAILY 07/25/19 07/25/19 History Allergies Allergy/AdvReac Type Severity Reaction Status Date / Time No Known Allergies Allergy Verified 07/24/19 17:16 Surgical - Exam Osteopathic Statement: *. No significant issues noted on an osteopathic structural exam other than those noted in the History and Physical/Consult. Vital Signs Temp Pulse Resp BP Pulse Ox 97.8 F 85 20 196/80 95 07/24/19 16:10 07/24/19 16:10 07/24/19 16:10 07/24/19 16:10 07/24/19 16:10 - General well developed, well nourished - Eyes PERRL - ENT no hearing loss - Neck trachea midline - Respiratory normal respiratory effort - Abdomen Soft, nontender, nondistended, no rebound, no guarding, palpable umbilical herni a that is easily reducible Results - Labs 07/25/19 05:40 07/25/19 05:40 Abnormal Lab Results - Last 24 Hours (Table) 07/24/19 07/24/19 07/24/19 Range/Units 16:55 16:55 16:55 WBC 24.6 H (3.8-10.6) k/uL RBC (4.30-5.90) m/uL Neutrophils # 21.7 H (1.3-7.7) k/uL Monocytes # 1.5 H (0-1.0) k/uL Chloride (98-107) mmol/L BUN 29 H (9-20) mg/dL Creatinine 2.02 H (0.66-1.25) mg/dL Glucose 178 H (74-99) mg/dL Plasma Lactic Acid Edgar 2.3 H* (0.7-2.0) mmol/L Total Bilirubin 1.9 H (0.2-1.3) mg/dL Urine Protein (Negative) Urine Blood (Negative) Ur Leukocyte Esterase (Negative) Urine RBC (0-5) /hpf Urine WBC (0-5) /hpf Urine Mucus (None) /hpf 07/24/19 07/24/19 07/25/19 Range/Units 19:40 20:43 05:40 WBC 20.8 H (3.8-10.6) k/uL RBC 4.13 L (4.30-5.90) m/uL Neutrophils # 16.8 H (1.3-7.7) k/uL Monocytes # 1.6 H (0-1.0) k/uL Chloride (98-107) mmol/L BUN (9-20) mg/dL Creatinine (0.66-1.25) mg/dL Glucose (74-99) mg/dL Plasma Lactic Acid Edgar 2.2 H* (0.7-2.0) mmol/L Total Bilirubin (0.2-1.3) mg/dL Urine Protein Trace H (Negative) Urine Blood Trace H (Negative) Ur Leukocyte Esterase Small H (Negative) Urine RBC 6 H (0-5) /hpf Urine WBC 8 H (0-5) /hpf Urine Mucus Rare H (None) /hpf 07/25/19 Range/Units 05:40 WBC (3.8-10.6) k/uL RBC (4.30-5.90) m/uL Neutrophils # (1.3-7.7) k/uL Monocytes # (0-1.0) k/uL Chloride 108 H (98-107) mmol/L BUN 28 H (9-20) mg/dL Creatinine 1.39 H (0.66-1.25) mg/dL Glucose 124 H (74-99) mg/dL Plasma Lactic Acid Edgar (0.7-2.0) mmol/L Total Bilirubin (0.2-1.3) mg/dL Urine Protein (Negative) Urine Blood (Negative) Ur Leukocyte Esterase (Negative) Urine RBC (0-5) /hpf Urine WBC (0-5) /hpf Urine Mucus (None) /hpf Microbiology - Last 24 Hours (Table) 07/24/19 22:50 Urine Culture - Preliminary Urine,Catheterized Diabetes panel 07/24/19 07/25/19 Range/Units 16:55 05:40 Sodium 144 140 (137-145) mmol/L Potassium 4.0 3.6 (3.5-5.1) mmol/L Chloride 107 108 H (98-107) mmol/L Carbon Dioxide 28 25 (22-30) mmol/L BUN 29 H 28 H (9-20) mg/dL Creatinine 2.02 H 1.39 H (0.66-1.25) mg/dL Glucose 178 H 124 H (74-99) mg/dL Calcium 10.0 9.0 (8.4-10.2) mg/dL AST 39 (17-59) U/L ALT 42 (4-49) U/L Alkaline Phosphatase 123 (38-126) U/L Total Protein 7.6 (6.3-8.2) g/dL Albumin 4.6 (3.5-5.0) g/dL Calcium panel 07/24/19 07/25/19 Range/Units 16:55 05:40 Calcium 10.0 9.0 (8.4-10.2) mg/dL Albumin 4.6 (3.5-5.0) g/dL Pituitary panel 07/24/19 07/25/19 Range/Units 16:55 05:40 Sodium 144 140 (137-145) mmol/L Potassium 4.0 3.6 (3.5-5.1) mmol/L Chloride 107 108 H (98-107) mmol/L Carbon Dioxide 28 25 (22-30) mmol/L BUN 29 H 28 H (9-20) mg/dL Creatinine 2.02 H 1.39 H (0.66-1.25) mg/dL Glucose 178 H 124 H (74-99) mg/dL Calcium 10.0 9.0 (8.4-10.2) mg/dL Adrenal panel 07/24/19 07/25/19 Range/Units 16:55 05:40 Sodium 144 140 (137-145) mmol/L Potassium 4.0 3.6 (3.5-5.1) mmol/L Chloride 107 108 H (98-107) mmol/L Carbon Dioxide 28 25 (22-30) mmol/L BUN 29 H 28 H (9-20) mg/dL Creatinine 2.02 H 1.39 H (0.66-1.25) mg/dL Glucose 178 H 124 H (74-99) mg/dL Calcium 10.0 9.0 (8.4-10.2) mg/dL Total Bilirubin 1.9 H (0.2-1.3) mg/dL AST 39 (17-59) U/L ALT 42 (4-49) U/L Alkaline Phosphatase 123 (38-126) U/L Total Protein 7.6 (6.3-8.2) g/dL Albumin 4.6 (3.5-5.0) g/dL Assessment and Plan (1) Umbilical hernia Narrative/Plan: 68-year-old male with umbilical hernia The hernia is reducible and nonpainful at this time. He does not appear to have any obstructive symptoms secondary to the umbilical hernia. At this time, we will continue to treat him for his current medical issues and plan for outpatient evaluation for future hernia repair. I did explain risk of strangulation of the hernia along with symptoms of bowel obstruction to the patient. He is to return to the emergency department with any of those symptoms if they occur. Current Visit: Yes Status: Acute Code(s): K42.9 - UMBILICAL HERNIA WITHOUT OBSTRUCTION OR GANGRENE SNOMED Code(s): 272296124
--- NOTE | 2019-07-25 15:58 | CONS ---
CONSULTATION REASON FOR CONSULT: Renal failure. HISTORY OF PRESENT ILLNESS: Patient is a 68-year-old male who was admitted to the hospital with complaints of abdominal discomfort and he also had some difficulty in passing urine. CAT scan showed bilateral hydronephrosis and enlarged prostate. The patient denies any prior history of kidney diseases. Serum creatinine was 2.0 mg/dL on admission, it is down to 1.39. Patient has an indwelling Baker catheter. It appears that he had a large amount of urine when the Baker catheter was inserted. The exact number is not listed. Blood pressure has not been significantly low. At home patient was maintained on MIKE inhibitors and angiotensin receptor blockers. Currently patient is on IV fluids at 100 mL an hour. PAST MEDICAL HISTORY: Hypertension, previous history of pneumonia, nephrolithiasis. PAST SURGICAL HISTORY: Adenoidectomy, appendectomy, cholecystectomy, hernia repair, tonsillectomy, surgery for kidney stones. SOCIAL HISTORY: Negative for smoking, drug abuse or alcohol abuse. MEDICATIONS: Medications prior to admission included Celexa, Flomax, Vasotec, Lasix, HydroDIURIL, Synthroid, losartan, metoprolol, omeprazole, K-Dur. ALLERGIES: None. REVIEW OF SYSTEMS: As per HPI. Other systems negative. PHYSICAL EXAMINATION: On examination, patient is comfortable, awake, alert, oriented x3, not in any acute distress. Blood pressure is 149/77, heart rate 81 per minute, he is afebrile. Examination of the heart S1, S2. Examination of the lungs, bilateral breath sounds are heard. Abdomen is soft, nontender. Examination of lower extremities shows edema 1+ bilaterally. 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 LAB: Show sodium 140, potassium 3.6, chloride 108, CO2 is 25, BUN 20, creatinine 1.39, hemoglobin 13.2 g/dL. Lactic acid was 2.3 down to 1.5 now. UA shows trace protein, trace blood, WBCs 8. ASSESSMENT: 1. Acute kidney injury, obstructive uropathy, currently improving significantly with Baker catheter placement. The CT scan of the abdomen shows some fullness of the left and right renal pelvis with an enlarged prostate about 8.5 cm. I will continue with the Baker catheter for now and continue with the Flomax as well. 2. Previous history of nephrolithiasis with previous surgical interventions for stones. No definite stone is seen on the current CAT scan. 3. Chronic kidney disease stage 3. Previous creatinine 1.1 mg/dL, etiology likely nephrosclerosis. The patient was not on any NSAIDs prior to admission. 4. Hypertension. Patient was on MIKE inhibitors as well as angiotensin receptor blockers. We will need to discontinue one of them prior to his discharge. Currently, both are on hold. 5. Hypertension. If the blood pressure remains elevated, we can add either the Cozaar or the lisinopril but not both. PLAN: Continue IV fluids. If blood pressure is elevated add lisinopril or Cozaar. Follow up as outpatient. Continue with Flomax. The patient will need to see Urology as outpatient. Thank you for this consultation. I will continue to follow the patient with you during her hospitalization. KATIE / JAXSON: [id number] /
--- NOTE | 2019-07-25 21:01 | PN ---
PROGRESS NOTE DATE OF SERVICE: 07/25/2019 This 67-year-old gentleman was admitted with abdominal discomfort and abnormal labs, had left flank pain. Patient had features of pyelonephritis, also acute renal failure. Patient also had acute renal failure. With IV fluids, creatinine is 1.39. At this time, the patient is being closely monitored. Multiple consultants following the patient. White count is elevated 20.8. The patient also had abdomen and pelvis CAT scan yesterday which I reviewed personally by me showed bilateral hydronephrosis and fat stranding of the left psoas muscle. Enlarged prostate was also noted as well as possible incarcerated hernia. Surgery has seen the patient and recommended no acute intervention at this time. No chest pain. No palpitations. PAST MEDICAL HISTORY: Reviewed. REVIEW OF SYSTEMS: CARDIOVASCULAR SYSTEM: No angina or palpitations. RESPIRATION: As mentioned earlier. GI as mentioned earlier. : No dysuria. CENTRAL NERVOUS SYSTEM: No numbness or weakness. CURRENT MEDICATIONS: Reviewed and include: 1. Tylenol p.r.n. 2. Independence 5 mg. 3. DuoNeb q.i.d. and p.r.n. 4. Xanax. 5. Rocephin 1 g IV daily. 6. Celexa 20 mg. 7. Heparin. 8. Dilaudid. 9. Synthroid. 10.Toprol-XL. 11.Zofran. 12.Protonix. 13.Flomax. PHYSICAL EXAMINATION: Alert and oriented times three. Pulse 76, blood pressure 150/78, respirations 20, temperature 97.8, pulse ox 98% on room air. HEENT: Conjunctivae normal. NECK: No JVD. CARDIOVASCULAR: S1, S2 muffled. RESPIRATORY: Breath sounds diminished in the bases. Scattered rhonchi and crackles. ABDOMEN: Soft. Mild diffuse discomfort in the left groin present. NERVOUS SYSTEM: Higher function as mentioned earlier. Moves all four limbs. No focal motor or sensory deficits. Lymphatics: No lymph nodes palpable in the neck, axillae or groin. SKIN: No ulcer, no rashes and no bleeding. Joints no active deforming arthropathy. LABS: WBC 20.8, sodium 140, potassium 3.6, creatinine 1.39. Plasma lactic acid 2.2 and 1.5. ASSESSMENT: 1. Left flank pain with urinary difficulty with possible acute pyelonephritis. 2. Acute renal failure possibly prerenal acute tubular necrosis and postrenal obstruction. 3. Bilateral hydronephrosis secondary to possible prostate. 4. Possible sepsis present on admission secondary to urinary tract infection and pyelonephritis as well as lactic acid 2.3, elevated. 5. Elevated bilirubin. 6. Increased WBC. 7. History of hypertension. 8. History of pneumonia. 9. History of possible benign prostatic hypertrophy in the CT scan. 10.Incarcerated umbilical hernia with no other obstruction in the CT scan. No need for any active surgical procedure per surgery. 11.History of appendectomy. 12.History of adenoidectomy. 13.History of nephrolithiasis. 14.History of cholelithiasis. 15.History of cholecystectomy. 16.Obesity body mass index 49.1. 17.FULL CODE. RECOMMENDATIONS AND DISCUSSION: Recommend to continue current medications, management and symptomatic treatment. Continue the antibiotics. Continue the rest of the medications. Monitor fluid and electrolyte balance closely. Cautious hydration. Otherwise continue to monitor. Continue Flomax. The patient also will require urology evaluation also. Further recommendations to follow. See orders for details. MMODL / IJN: [id number] /
[2019-07-26] MEDS: LEVOTHYROXINE 100 MCG TAB PO SCH (05:37)
[2019-07-26] MEDS: LEVOTHYROXINE 75 MCG TAB PO SCH (05:37)
[2019-07-26] MEDS: PANTOPRAZOLE 40 MG TABLET PO SCH (06:37)
[2019-07-26 06:40] LABS: African American GFR (CKD) >90 (>60 ml/min/1.73 sqM); Anion Gap 6 mmol/L; Blood Urea Nitrogen 23 mg/dL (9-20); Calcium 8.5 mg/dL (8.4-10.2); Carbon Dioxide 26 mmol/L (22-30); Chloride 107 mmol/L (98-107); Glucose 110 mg/dL (74-99); Non-African American GFR(CKD) 85 (>60 ml/min/1.73 sqM); Potassium 3.6 mmol/L (3.5-5.1); Sodium 139 mmol/L (137-145)
[2019-07-26 06:45] LABS: Basophils # (A) 0.1 k/uL (0-0.2); Basophils % (A) 0 %; Eosinophils # (A) 0.6 k/uL (0-0.7); Eosinophils % (A) 4 %; HCT 40.1 % (39.0-53.0); HGB 12.9 gm/dL (13.0-17.5); Lymphocytes # (A) 2.6 k/uL (1.0-4.8); Lymphocytes % (A) 17 %; MCH 31.9 pg (25.0-35.0); MCHC 32.3 g/dL (31.0-37.0); MCV 98.9 fL (80.0-100.0); Mean Platelet Volume 8.3; Monocytes # (A) 1.2 k/uL (0-1.0); Monocytes % (A) 8 %; Neutrophils # (A) 10.4 k/uL (1.3-7.7); Neutrophils % (A) 68 %; Platelet Count 226 k/uL (150-450); RBC 4.05 m/uL (4.30-5.90); RDW 13.6 % (11.5-15.5); WBC 15.1 k/uL (3.8-10.6)
[2019-07-26] MEDS: IPRATROPIUM-ALBUTEROL 3 ML NEB INHALATION SCH ×3 (07:47→21:34)
[2019-07-26] MEDS: CITALOPRAM HYDROBROMIDE 20 MG TAB PO SCH (09:34)
[2019-07-26] MEDS: METOPROLOL SUCCINATE (ER) 25 MG TAB.ER.24H PO SCH (09:34)
[2019-07-26] MEDS: TAMSULOSIN 0.4 MG CAP.ER.24H PO SCH (09:34)
[2019-07-26] MEDS: HEPARIN SODIUM,PORCINE 5,000 UNIT/ML 1 ML VIAL SQ SCH (09:34)
--- NOTE | 2019-07-26 15:50 | PN ---
PROGRESS NOTE The patient is seen for follow up for acute kidney injury which appears to be mainly obstructive, improved with Baker catheter placement. The patient is maintained on Flomax. His creatinine is down to 0.9 today. No significant complaints. PHYSICAL EXAMINATION: On examination, blood pressure is 142/65, heart rate 84 per minute, he is afebrile. Examination of the heart: S1 and S2. Examination of the lungs: Bilateral breath sounds are heard. Abdomen is soft, nontender. Examination of the lower extremities shows edema 1+ bilaterally with chronic skin changes. LABS: Laboratory show sodium 139, potassium 3.6, chloride 107, BUN 23, creatinine 0.9. Hemoglobin 12.9 grams/dL. ASSESSMENT: 1. Acute kidney injury, obstructive uropathy, currently significantly improved. Continue with the Flomax. Continue indwelling Baker catheter. The patient will need to follow up with Urology as an outpatient. 2. Hypertension: We can resume the MIKE inhibitors that the patient was taking at home. 3. Chronic kidney disease stage III secondary to nephrosclerosis. Previous creatinine about 1.1. PLAN: Can resume MIKE inhibitors. Patient will need follow up with Urology as an outpatient. Continue with Flomax and Baker catheter for now. MMODL / IJN: [id number] /
--- NOTE | 2019-07-26 16:04 | P.PN ---
Subjective Progress Note Date: 07/26/19 Principal diagnosis: This is a 67-year-old male who was recently admitted with abdominal discomfort and abnormal labs along with left-sided flank pain and is being closely monitored. Patient had features of pyelonephritis with acute renal failure. Nephrology is following. Surgery evaluated the patient and recommending no acute interventions at this time and will follow-up with the patient in the outpatient setting. Patient states that his abdominal pain has gotten better a nd was started on a diet and is tolerating diet with no reports of nausea or vomiting. Patient continues to have an indwelling Baker catheter. No reports of chest pain, shortness of breath, or palpitations. Patient remains on gentle IV hydration and current creatinine is improved at 0.93. Will repeat a.m. labs. Objective - Vital Signs Vital signs: Vital Signs Temp 98.8 F 07/26/19 08:00 Pulse 77 07/26/19 14:37 Resp 18 07/26/19 14:37 BP 155/98 07/26/19 11:56 Pulse Ox 94 L 07/26/19 11:56 Intake & Output 07/25/19 07/26/19 07/26/19 18:59 06:59 18:59 Intake Total 870 1640 480 Output Total 2400 901 1701 Balance -1530 739 -1221 Weight 154.5 kg Intake: IV 700 500 Sodium Chloride 0.9% 1, 700 500 000 ml @ 100 mls/hr IV . Q10H [facility] Rx#:[id number] Intake, IV Titration 50 Amount cefTRIAXone 1 gm In 50 Sodium Chloride 0.9% 50 ml @ 100 mls/hr IVPB Q24HR [facility]ETTA Rx#:[id number] Oral 120 1140 480 Output: Urine 2400 900 1700 Stool 1 1 Other: Voiding Method Indwelling Catheter Indwelling Catheter Indwelling Catheter # Voids 0 1 # Bowel Movements 0 - Exam Gen: This is a 68-year-old male sitting up in the chair, awake, alert and oriented 3, well-developed, well-nourished, obese. Temp is 98.8F, pulse is 84, respirations are 18, blood pressure is 142/65, oxygen saturation is 94% on room air. HEENT: Head is atraumatic, normocephalic. Pupils equal, round. Sclerae is anicteric. NECK: Supple. No JVD. No lymphadenopathy. No thyromegaly. LUNGS: Diminished breath sounds at the bases with a few scattered rhonchi and crackles noted. No intercostal retractions. HEART: S1, S2 are muffled ABDOMEN: Soft. Obese. Bowel sounds are present. No masses. No tenderness. EXTREMITIES: No pedal edema. No calf tenderness. NEUROLOGICAL: Patient is awake, alert and oriented x3. Cranial nerves 2 through 12 are grossly intact. - Labs CBC & Chem 7: 07/26/19 05:43 07/26/19 05:43 Labs: Abnormal Lab Results - Last 24 Hours (Table) 07/26/19 07/26/19 Range/Units 05:43 05:43 WBC 15.1 H (3.8-10.6) k/uL RBC 4.05 L (4.30-5.90) m/uL Hgb 12.9 L (13.0-17.5) gm/dL Neutrophils # 10.4 H (1.3-7.7) k/uL Monocytes # 1.2 H (0-1.0) k/uL BUN 23 H (9-20) mg/dL Glucose 110 H (74-99) mg/dL Microbiology - Last 24 Hours (Table) 07/24/19 22:50 Urine Culture - Final Urine,Catheterized 07/24/19 20:16 Blood Culture - Preliminary Blood No Growth after 24 hours Assessment and Plan Assessment: Left flank pain with urinary difficulty with possible acute pyelonephritis Acute renal failure possibly prerenal acute tubular necrosis and post renal obstruction Bilateral hydronephrosis secondary to possible prostate Possible sepsis, present on admission secondary to urinary tract infection and pyelonephritis as well as lactic acid 2.3, elevated Elevated bilirubin Increased WBC History of hypertension History of pneumonia History of possible benign prostatic hypertrophy on the computed tomography scan Incarcerated umbilical hernia with no other obstruction on the computed tomography scan. No need for any surgical procedure at this time per surgery History of appendectomy History of adenoidectomy History of nephrolithiasis history of cholelithiasis history of cholecystectomy obesity with a body mass index of 49.1 Full code Recommendations and discussions: Recommend to continue current medications, management, and symptomatic treatment. Patient to continue with an indwelling Baker catheter and Flomax at this time. Patient will need follow-up with urology as well as surgery in the outpatient setting. Current creatinine has improved and is 0.93 at this time. Nephrology following. Due to multiple medical issues, prognosis is guarded. Recommendations to follow. Possible discharge in 24-48 hours.
[2019-07-26] MEDS: SODIUM CHLORIDE 0.9% 1,000 ML IV SCH (18:16)
[2019-07-27] MEDS: HEPARIN SODIUM,PORCINE 5,000 UNIT/ML 1 ML VIAL SQ SCH ×2 (00:20→07:18)
[2019-07-27] MEDS: SODIUM CHLORIDE 0.9% 1,000 ML IV SCH ×3 (00:25→13:37)
[2019-07-27] MEDS: LEVOTHYROXINE 75 MCG TAB PO SCH (05:26)
[2019-07-27] MEDS: LEVOTHYROXINE 100 MCG TAB PO SCH (05:26)
[2019-07-27] MEDS: CITALOPRAM HYDROBROMIDE 20 MG TAB PO SCH (07:18)
[2019-07-27] MEDS: METOPROLOL SUCCINATE (ER) 25 MG TAB.ER.24H PO SCH (07:18)
[2019-07-27] MEDS: TAMSULOSIN 0.4 MG CAP.ER.24H PO SCH (07:18)
[2019-07-27] MEDS: PANTOPRAZOLE 40 MG TABLET PO SCH (07:18)
[2019-07-27] MEDS: IPRATROPIUM-ALBUTEROL 3 ML NEB INHALATION SCH ×2 (08:44→12:25)
[2019-07-27 10:03] LABS: Basophils # (A) 0.1 k/uL (0-0.2); Basophils % (A) 0 %; Eosinophils # (A) 0.2 k/uL (0-0.7); Eosinophils % (A) 1 %; HCT 42.3 % (39.0-53.0); HGB 13.7 gm/dL (13.0-17.5); Lymphocytes # (A) 1.7 k/uL (1.0-4.8); Lymphocytes % (A) 9 %; MCHC 32.5 g/dL (31.0-37.0); MCV 98.6 fL (80.0-100.0); Mean Platelet Volume 8.8; Monocytes # (A) 1.4 k/uL (0-1.0); Monocytes % (A) 7 %; Neutrophils # (A) 16.1 k/uL (1.3-7.7); Neutrophils % (A) 81 %; Platelet Count 236 k/uL (150-450); RBC 4.29 m/uL (4.30-5.90); RDW 13.3 % (11.5-15.5); WBC 19.9 k/uL (3.8-10.6)
[2019-07-27 10:48] LABS: Calcium 9.1 mg/dL (8.4-10.2); Potassium 3.9 mmol/L (3.5-5.1)
[2019-07-27] MEDS ORDERED: LIDOCAINE URO-JET JELLY 2% 5 ML KIT URETHRAL ONE (14:25)
[2019-07-27 14:57] VITALS: BP 174/84; PULSE 78; RESP 20; TEMP 97.8
--- NOTE | 2019-07-27 18:16 | P.GSCN ---
History of Present Illness Consult date: 07/27/19 Reason for Consult: Urinary retention History of present illness: Mr Landers is a 68-year-old male presents with right flank pain and urinary retention . Of note he has history of mental delay, the patient does have 2 sisters that do care for him. He had bledsoe catheter placed at time of admission which resulted in resolution of his pain. Bledsoe was removed this am. He has been unable to void. Nurses were unable to reinsert bledsoe back. Of note he has history of urinary retention in the past and was evaluated by Dr aguilar in 2018. He was previously on flomax, and has not been on it recently. He is unsure if he has any urinary issues at baseline. Denies any dysuria of hematuria Review of Systems - Constitutional Denies chills, Denies fever, Denies weakness - EENT Ears, nose, mouth and throat: Denies dysphagia, Denies headache - Cardiovascular Denies chest pain, Denies dyspnea on exertion - Respiratory Denies cough, Denies dyspnea - Gastrointestinal Reports abdominal pain, Denies nausea, Denies vomiting - Genitourinary Reports urinary retention, Denies dysuria, Denies hematuria - Musculoskeletal Denies frequent falls, Denies muscle weakness - Neurological Denies confusion, Denies weakness Past Medical History Past Medical History: Hypertension, Pneumonia Additional Past Medical History / Comment(s): kidney stones,gallstones. at had lack of oxygen,mentally handicapped.took classes at [employer] age 26 then went to [employer]. unable to read but able to spell name and unable to manage money. his mom and he lives with dad. his sister sherie and chelsy are his legal guardians. obesity History of Any Multi-Drug Resistant Organisms: None Reported Past Surgical History: Adenoidectomy, Appendectomy, Cholecystectomy, Hernia Repair, Tonsillectomy Additional Past Surgical History / Comment(s): kidney stone removed Past Anesthesia/Blood Transfusion Reactions: No Reported Reaction Smoking Status: Never smoker - Past Family History Father History Unknown: Yes Mother History Unknown: Yes Medications and Allergies Home Medications Medication Instructions Recorded Confirmed Type Tamsulosin HCl [Flomax] 0.4 mg PO DAILY 08/06/17 07/24/19 History Enalapril [Vasotec] 20 mg PO DAILY 07/24/19 07/24/19 History Levothyroxine Sodium [Euthyrox] 75 mcg PO DAILY 07/24/19 07/24/19 History Levothyroxine Sodium [Synthroid] 100 mcg PO DAILY 07/24/19 07/24/19 History Losartan Potassium 100 mg PO DAILY 07/24/19 07/24/19 History Metoprolol Succinate [Toprol XL] 25 mg PO DAILY 07/24/19 07/24/19 History Omeprazole 20 mg PO BID PRN 07/24/19 07/24/19 History Cefuroxime Axetil [Ceftin] 500 mg PO BID 3 Days #6 tab 07/27/19 Rx Citalopram Hydrobromide [CeleXA] 20 mg PO DAILY 30 Days #30 tab 07/27/19 Rx Allergies Allergy/AdvReac Type Severity Reaction Status Date / Time No Known Allergies Allergy Verified 07/24/19 17:16 Surgical - Exam Vital Signs Temp Pulse Resp BP Pulse Ox 97.8 F 85 20 196/80 95 07/24/19 16:10 07/24/19 16:10 07/24/19 16:10 07/24/19 16:10 07/24/19 16:10 - General no distress, no pain - Eyes normal ocular movement, no pale - ENT normal mucosa, no hearing loss - Respiratory normal expansion, normal respiratory effort - Abdomen Abdomen: soft, non tender - Genitourinary Uncircumcised phallus, with tight phimosis, unable to retract foreskin - Psychiatric oriented to time, oriented to person, oriented to place Results - Labs 07/27/19 09:38 07/27/19 09:38 Abnormal Lab Results - Last 24 Hours (Table) 07/27/19 07/27/19 Range/Units 09:38 09:38 WBC 19.9 H (3.8-10.6) k/uL RBC 4.29 L (4.30-5.90) m/uL Neutrophils # 16.1 H (1.3-7.7) k/uL Monocytes # 1.4 H (0-1.0) k/uL BUN 27 H (9-20) mg/dL Creatinine 1.89 H (0.66-1.25) mg/dL Glucose 138 H (74-99) mg/dL Microbiology - Last 24 Hours (Table) 07/24/19 20:16 Blood Culture - Preliminary Blood No Growth after 48 hours Diabetes panel 07/27/19 Range/Units 09:38 Sodium 138 (137-145) mmol/L Potassium 3.9 (3.5-5.1) mmol/L Chloride 106 (98-107) mmol/L Carbon Dioxide 23 (22-30) mmol/L BUN 27 H (9-20) mg/dL Creatinine 1.89 H (0.66-1.25) mg/dL Glucose 138 H (74-99) mg/dL Calcium 9.1 (8.4-10.2) mg/dL Calcium panel 07/27/19 Range/Units 09:38 Calcium 9.1 (8.4-10.2) mg/dL Pituitary panel 07/27/19 Range/Units 09:38 Sodium 138 (137-145) mmol/L Potassium 3.9 (3.5-5.1) mmol/L Chloride 106 (98-107) mmol/L Carbon Dioxide 23 (22-30) mmol/L BUN 27 H (9-20) mg/dL Creatinine 1.89 H (0.66-1.25) mg/dL Glucose 138 H (74-99) mg/dL Calcium 9.1 (8.4-10.2) mg/dL Adrenal panel 07/27/19 Range/Units 09:38 Sodium 138 (137-145) mmol/L Potassium 3.9 (3.5-5.1) mmol/L Chloride 106 (98-107) mmol/L Carbon Dioxide 23 (22-30) mmol/L BUN 27 H (9-20) mg/dL Creatinine 1.89 H (0.66-1.25) mg/dL Glucose 138 H (74-99) mg/dL Calcium 9.1 (8.4-10.2) mg/dL Assessment and Plan Assessment: 68 yo male admitted to the hospital with abdominal and flank pain. Pain resolved with bledsoe placement. He failed TOV this am, of note catheter Plan: -18 Fr coude catheter was placed w/o difficulty -Continue flomax 0.4 mg, patient need to be discharged home on flomax -F/u in 7-[address] Aguilar for managment of his urinary retention Time with Patient: Greater than 30
--- NOTE | 2019-07-28 08:42 | P.DS ---
Providers Date of admission: 07/24/19 19:30 Expected date of discharge: 07/27/19 Attending physician: Inocente Hill Consults: 07/24/19 21:21 Consult Physician Routine Consulting Provider: Marie Elliott Consult Reason/Comments: umbilical hernia in the ct scan Do you want consulting provider notified?: Yes Consult Physician Routine Consulting Provider: Richa Hoover Consult Reason/Comments: arf Do you want consulting provider notified?: Yes 07/27/19 11:51 Consult Physician Routine Consulting Provider: Tino Crowder Consult Reason/Comments: place bledsoe Do you want consulting provider notified?: Yes Primary care physician: Callie Edmonds [facility] Hospital Course: Final diagnosis Left flank pain with urinary difficulty with possible acute pyelonephritis Acute renal failure possibly prerenal acute tubular necrosis and post renal obstruction Bilateral hydronephrosis secondary to possible prostate Possible sepsis, present on admission secondary to urinary tract infection and p yelonephritis as well as lactic acid 2.3, elevated Elevated bilirubin Increased WBC History of hypertension History of pneumonia History of possible benign prostatic hypertrophy on the computed tomography scan Incarcerated umbilical hernia with no other obstruction on the computed tomography scan. No need for any surgical procedure at this time per surgery History of appendectomy History of adenoidectomy History of nephrolithiasis history of cholelithiasis history of cholecystectomy obesity with a body mass index of 49.1 Full code Discharge disposition Patient is being discharged in a stable condition with guarded prognosis to home and will continue with residential home health care. Patient will follow-up with Dr. Edmonds upon discharge. Patient will also follow-up with Dr. Corral, Dr. Elliott, Dr. Aguilar in the outpatient setting as discussed and scheduled. Patient will continue with a short course of oral antibiotics in the form of Ceftin twice daily for the next 3 days. Total time taken is 35 minutes. History of present illness This is a 68-year-old male who was recently admitted abdominal discomfort and abnormal labs along with left-sided flank pain and was being closely monitored. Multiple medical consultations were following. Patient was treated with antibiotics and an indwelling Bledsoe catheter was placed and patient was reinitiated on Flomax and pain had resolved. Patient was seen and evaluated by Dr. Elliott surgery recommending no immediate surgery at this time and follow-up outpatient. Patient did have Bledsoe catheter removed although continue to have some urinary retention with difficulty in urinating and nursing staff was unable to reinsert a Bledsoe catheter and urology was consulted. Urology replaced the indwelling Bledsoe catheter with a coud and patient will continue in the outpatient setting with the Bledsoe and follow-up with urology Dr. Aguilar. Patient's current creatinine was slightly elevated at 1.89 and recommending repeat labs in 2-3 days to monitor this. Patient will also follow-up with nephrology in the outpatient setting in one week. Currently no reports of chest pain, shortness of breath, or palpitations. Patient is afebrile. No reports of nausea or vomiting and patient is tolerating diet. Guarded prognosis. On exam vital signs are stable. Temp is 97.8F, pulse is 78, respirations are 20, blood pressure is 174/84, oxygen saturation is 93 % on room air. Cardio S1, S2 are muffled. Respiratory shows diminished breath sounds at the bases with no wheezing or rhonchi noted. Abdomen is soft, obese, and nontender. Nervous sys tem shows no focal deficits. Please refer to medication reconciliation sheet for a list of medications. Patient Condition at Discharge: Stable Plan - Discharge Summary New Discharge Prescriptions: New Cefuroxime Axetil [Ceftin] 500 mg PO BID 3 Days #6 tab Citalopram Hydrobromide [CeleXA] 20 mg PO DAILY 30 Days #30 tab Continue Tamsulosin HCl [Flomax] 0.4 mg PO DAILY Metoprolol Succinate [Toprol XL] 25 mg PO DAILY Levothyroxine Sodium [Euthyrox] 75 mcg PO DAILY Losartan Potassium 100 mg PO DAILY Levothyroxine Sodium [Synthroid] 100 mcg PO DAILY Enalapril [Vasotec] 20 mg PO DAILY Omeprazole 20 mg PO BID PRN PRN Reason: gerds Discontinued Furosemide [Lasix] 40 mg PO DAILY Hydrochlorothiazide [Hydrodiuril] 25 mg PO DAILY Potassium Chloride ER [K-Dur 20] 20 meq PO DAILY Citalopram Hydrobromide [CeleXA] 40 mg PO DAILY Discharge Medication List Tamsulosin HCl [Flomax] 0.4 mg PO DAILY 08/06/17 [History] Enalapril [Vasotec] 20 mg PO DAILY 07/24/19 [History] Levothyroxine Sodium [Euthyrox] 75 mcg PO DAILY 07/24/19 [History] Levothyroxine Sodium [Synthroid] 100 mcg PO DAILY 07/24/19 [History] Losartan Potassium 100 mg PO DAILY 07/24/19 [History] Metoprolol Succinate [Toprol XL] 25 mg PO DAILY 07/24/19 [History] Omeprazole 20 mg PO BID PRN 07/24/19 [History] Cefuroxime Axetil [Ceftin] 500 mg PO BID 3 Days #6 tab 07/27/19 [Rx] Citalopram Hydrobromide [CeleXA] 20 mg PO DAILY 30 Days #30 tab 07/27/19 [Rx] Follow up Appointment(s)/Referral(s): Richa Hoover MD [STAFF PHYSICIAN] - 08/10/19 11:20 am Calvin Aguilar MD [STAFF PHYSICIAN] - 1 Week Residential Home,[facility] [NON-STAFF] - Callie Edmonds MD [Primary Care Provider] - 1-2 days Marie Elliott DO [Doctor of Osteopathic Medicine] - 08/15/19 11:15 am Ambulatory/Diagnostic Orders: Basic Metabolic Panel [LAB.AMB] Location: None Selected Complete Blood Count w/diff [LAB.AMB] Time Frame: 2 Days, Location: None Selected Patient Instructions/Handouts: Bledsoe Catheter Placement and Care (DC), Kidney Infection (DC) Activity/Diet/Wound Care/Special Instructions: Contact [facility] to start the process of getting incontinent supplies - [phone] Contact [facility] [place] on Aging ([phone]) or [facility] ([phone]) to look into a home health aide to assist with bathing Activity Limited until follow-up Continue current diet Continue with Flomax Follow-up with nephrology in one week Follow-up with urology in 1 week Follow up with primary care provider upon discharge Repeat labs in 2-3 days Discharge Disposition: HOME WITH HOME HEALTH SERVICES
== END 2019-07-27 16:35 | disposition home health service (06) | DRG 871 ==
LOC: EC 16:05 → 3SCARD 19:30 → EEVIPCON 19:30 → 3SCARD 20:51 → 6NMEDSUR 07-26 18:21
PROVIDERS: ADMIT Hospitalist; ATTEND Hospitalist
DX: A41.9 Sepsis, unspecified organism (principal); N17.0 Acute kidney failure with tubular necrosis; K42.0 Umbilical hernia with obstruction, without gangrene; N13.6 Pyonephrosis; Z68.42 Body mass index [BMI] 45.0-49.9, adult; I12.9 Hypertensive chronic kidney disease with stage 1 through stage 4 chronic kidney disease, or unspecified chronic kidney disease; E66.9 Obesity, unspecified; N18.3 Chronic kidney disease, stage 3 (moderate); F79 Unspecified intellectual disabilities; N40.1 Benign prostatic hyperplasia with lower urinary tract symptoms; R33.9 Retention of urine, unspecified; Z79.899 Other long term (current) drug therapy; Z79.890 Hormone replacement therapy; Z87.01 Personal history of pneumonia (recurrent); Z87.442 Personal history of urinary calculi; Z90.49 Acquired absence of other specified parts of digestive tract; Z90.89 Acquired absence of other organs; Z98.890 Other specified postprocedural states; Z87.891 Personal history of nicotine dependence
CPT/HCPCS: 36415; 51702; 51798; 71046; 74018; 74176; 80048; 80053; 81001; 82009; 83605; 83735; 83880; 85025; 85610; 85730; 87040; 87086; 93005; 94640; 96361; 96374; 96375; 99285